=== PATIENT | female | born 2000 | race Caucasian/White ===

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

== ENCOUNTER → 2020-01-21 | Outpatient (CLI) | payer OTHER ==
[2020-01-21 15:51] LABS: ALBUMIN 4.6 g/dL (3.5-5.0)
[2020-01-21 15:54] LABS: TOTAL PROTEIN 8.1 g/dL (6.4-8.3)
[2020-01-21 15:55] LABS: TOTAL BILIRUBIN 0.3 mg/dL (0.2-1.2)
[2020-01-21 15:59] LABS: DIRECT BILIRUBIN 0.1 mg/dL (0.0-0.5)
== END ==
LOC: LAB 15:28
PROVIDERS: Physician Assistant
DX: Z51.81 Encounter for therapeutic drug level monitoring (principal); Z79.899 Other long term (current) drug therapy

== ENCOUNTER → 2020-03-17 | Outpatient (CLI) | payer OTHER ==
[2020-03-17 11:03] LABS: ALBUMIN 4.3 g/dL (3.5-5.0)
[2020-03-17 11:06] LABS: TOTAL PROTEIN 7.7 g/dL (6.4-8.3)
[2020-03-17 11:07] LABS: TOTAL BILIRUBIN 0.3 mg/dL (0.2-1.2)
[2020-03-17 11:11] LABS: DIRECT BILIRUBIN 0.2 mg/dL (0.0-0.5)
== END ==
LOC: LAB 10:44
PROVIDERS: Physician Assistant
DX: Z79.899 Other long term (current) drug therapy (principal)

== ENCOUNTER → 2020-04-11 | Outpatient (CLI) | payer OTHER ==
[2020-04-11 15:38] LABS: ALBUMIN 4.2 g/dL (3.5-5.0)
[2020-04-11 15:41] LABS: TOTAL PROTEIN 7.3 g/dL (6.4-8.3)
[2020-04-11 15:42] LABS: TOTAL BILIRUBIN 0.2 mg/dL (0.2-1.2)
[2020-04-11 15:46] LABS: DIRECT BILIRUBIN 0.1 mg/dL (0.0-0.5)
== END ==
LOC: LAB 15:12
PROVIDERS: Physician Assistant
DX: Z79.899 Other long term (current) drug therapy (principal)

== ENCOUNTER → 2020-05-16 | Outpatient (CLI) | payer OTHER | LOC: LAB 14:23 | DX: Z79.899 Other long term (current) drug therapy (principal) ==

== ENCOUNTER → 2020-06-16 | Outpatient (CLI) | payer OTHER | LOC: LAB 16:05 | DX: Z79.899 Other long term (current) drug therapy (principal) ==

== ENCOUNTER → 2020-07-22 | Outpatient (CLI) | payer OTHER | LOC: LAB 10:50 | DX: Z79.899 Other long term (current) drug therapy (principal) ==

== ENCOUNTER → 2021-03-23 | Outpatient (CLI) | payer OTHER | LOC: LAB 11:50 | DX: R30.9 Painful micturition, unspecified (principal) ==

== ENCOUNTER → 2021-10-05 | Outpatient (CLI) | payer OTHER | LOC: LAB 12:38 | DX: J02.9 Acute pharyngitis, unspecified (principal) ==